=== PATIENT | female | born 1990 | race Caucasian/White ===

== ENCOUNTER 2022-06-15 01:43 | Inpatient (IN) | payer BC ==
[2022-06-15] MEDS ORDERED: hydrALAZINE 20 MG/ML VIAL SLOW IVP PRN ×2 (01:57→03:16)
[2022-06-15] MEDS ORDERED: Ondansetron PF 4 MG/2 ML Vial IVP PRN ×3 (01:57→03:51)
[2022-06-15] MEDS ORDERED: Lidocaine 1% (PF) 30 ML VIAL SC PRN ×2 (01:57→01:59)
[2022-06-15] MEDS ORDERED: Promethazine HCl 25 MG/ML VIAL IM PRN ×3 (01:57→03:51)
[2022-06-15] MEDS ORDERED: Methylergonovine 0.2 MG/ML VIAL IM PRN (01:59)
[2022-06-15] MEDS ORDERED: Diphenoxylate HCl/Atropine Tablet PO PRN (01:59)
[2022-06-15] MEDS ORDERED: Carboprost 250 MCG/ML AMP IM PRN (01:59)
[2022-06-15] MEDS ORDERED: Misoprostol 200 MCG TAB PR PRN (01:59)
[2022-06-15] MEDS ORDERED: NS w/ Oxytocin 30 units 500 ML IV SCH ×3 (02:00)
[2022-06-15] MEDS ORDERED: Penicillin G 2.5 MILL.units 2.5 MILL.UNITS in Premix Bag 1 BAG IVPB SCH (02:00)
[2022-06-15] MEDS ORDERED: Penicillin G Potassium 5 MILL.UNITS in Sodium Chloride 0.9% 100 ML IVPB SCH (02:00)
[2022-06-15] MEDS ORDERED: Azithromycin 500 MG VIAL ONE (02:08)
[2022-06-15] MEDS ORDERED: CEFAZOLIN 2 GM VIAL ONE (02:08)
[2022-06-15] MEDS ORDERED: Ondansetron PF 4 MG/2 ML Vial ONE (02:11)
[2022-06-15] MEDS ORDERED: Dexamethasone 4 mg/ml Vial ONE (02:11)
[2022-06-15] MEDS ORDERED: Lidocaine 1% PF 5 ML VIAL ONE (02:11)
[2022-06-15] MEDS ORDERED: PROPOFOL 20 ML ONE (02:11)
[2022-06-15] MEDS ORDERED: Succinylcholine 200 MG/10 ml SYRINGE FS ONE (02:11)
[2022-06-15] MEDS ORDERED: PHENYLEPHRINE-NS 100 MCG/ML 10 ML SYRINGE ONE (02:11)
[2022-06-15] MEDS ORDERED: Fentanyl 100 MCG/2 ML VIAL ONE ×3 (02:11→03:07)
[2022-06-15] MEDS ORDERED: CEFAZOLIN 2 GM in Sodium Chloride 0.9% 100 ML IVPB SCH (02:15)
[2022-06-15] MEDS ORDERED: Azithromycin 500 MG in Sodium Chloride 0.9% 250 ML 250 ML IVPB ONE (02:15)
[2022-06-15] MEDS ORDERED: Oxytocin 10 UNITS/ML VIAL ONE ×3 (02:21→02:43)
[2022-06-15] MEDS ORDERED: Methylergonovine 0.2 MG/ML VIAL ONE ×2 (02:24→02:43)
[2022-06-15] MEDS ORDERED: Carboprost 250 MCG/ML AMP ONE (02:24)
[2022-06-15] MEDS ORDERED: Tranexamic Acid 1,000 MG/10 ML VIAL ONE (02:25)
[2022-06-15] MEDS ORDERED: Misoprostol 200 MCG TAB ONE ×2 (02:27→02:33)
[2022-06-15 02:41] LABS: Hemoglobin 14.7 g/dL (12.0-15.5); Mean Corpuscular HGB CONC 35.3 g/dL (32.0-36.0); Mean Corpuscular Volume 85.1 fl (81.6-98.3); Platelet Count 294 10x3/uL (150-450); RBC Distribution Width 12.2 % (11.5-14.5)
[2022-06-15] MEDS ORDERED: Acetaminophen 325 MG TAB PO PRN (03:16)
[2022-06-15] MEDS ORDERED: Lanolin Ointment 7 GM TUBE TOP PRN (03:16)
[2022-06-15] MEDS ORDERED: Simethicone Chewable 80 MG TAB PO PRN (03:16)
[2022-06-15] MEDS ORDERED: Boostrix 0.5 ML (Tdap) VIAL (>/=7 yrs of age) IM ONE (03:16)
[2022-06-15] MEDS ORDERED: HYDROcodone/Acetaminophen 5/325 mg Tablet PO PRN (03:16)
[2022-06-15] MEDS ORDERED: Ketorolac Tromethamine 30 MG/ML VIAL IVP PRN (03:51)
[2022-06-15] MEDS ORDERED: Moisturizing Cream (Eucerin) 113 GM JAR TOP PRN (03:51)
[2022-06-15] MEDS ORDERED: Meperidine HCl/PF 25 MG/ML VIAL SLOW IVP PRN (03:51)
[2022-06-15] MEDS ORDERED: Naloxone HCl 0.4 mg/ml Vial IVP PRN ×2 (03:51)
[2022-06-15] MEDS ORDERED: Fentanyl 100 MCG/2 ML VIAL SLOW IVP PRN (03:51)
[2022-06-15] MEDS ORDERED: diphenhydrAMINE 25 MG CAP PO PRN (03:51)
[2022-06-15] MEDS ORDERED: diphenhydrAMINE 50 MG/ML VIAL IM PRN (03:51)
[2022-06-15] MEDS ORDERED: diphenhydrAMINE 50 MG/ML VIAL IVP PRN ×2 (03:51)
[2022-06-15] MEDS ORDERED: Promethazine HCl 25 MG SUPP PR PRN (03:51)
[2022-06-15] MEDS ORDERED: Naloxone HCl 0.4 mg/ml Vial IV PRN ×2 (03:51)
[2022-06-15] MEDS ORDERED: FENTANYL 500 MCG/10 ML VIAL 2,000 MCG in Sodium Chloride 0.9% 60 ML IV PRN (03:51)
[2022-06-15] MEDS ORDERED: Ondansetron HCl/PF 4 MG/2 ML Vial IVP PRN (03:51)
[2022-06-15] MEDS ORDERED: Zolpidem Tartrate 5 MG TAB PO PRN (03:51)
[2022-06-15 03:53] VITALS: BMI 31.1
[2022-06-15] MEDS ORDERED: Communication Order-Pharmacy FS SCH ×2 (04:00)
[2022-06-15] MEDS ORDERED: Ketorolac Tromethamine 30 MG/ML VIAL IVP SCH (04:00)
[2022-06-15 04:01] LABS: pH (Cord, venous) 7.091 (7.250-7.350)
[2022-06-15] MEDS: FENTANYL 500 MCG/10 ML VIAL 1,000 MCG in Sodium Chloride 0.9% 30 ML IV PRN ×2 (04:44→21:31)
[2022-06-15 05:13] LABS: Syphilis Antibody Nonreactive (Nonreactive); Syphilis Antibody Index 0.13 S/CO (<1.00 Non-Reactive)
[2022-06-15 05:14] LABS: HBSAg Index 0.12 S/CO (0-0.99); Hep B Surf Ag Non-Reactive S/CO (NonReactive)
[2022-06-15 06:13] LABS: HIV (1/2) Antibody/Antigen Non-Reactive (NonReactive); HIV 1/2 INDEX 0.16 S/CO (<1.00)
[2022-06-15] MEDS: Methylergonovine 0.2 MG/ML VIAL IM SCH ×3 (08:37→19:06)
[2022-06-15] MEDS: Lactated Ringer's 1,000 ML IV SCH ×2 (08:37→19:06)
[2022-06-15] MEDS: Docusate 100 MG CAP PO SCH ×2 (11:38→19:57)
[2022-06-15] MEDS: Prenatal Vitamin 1 TAB PO SCH (11:39)
[2022-06-15 12:14] LABS: Hemoglobin 12.5 g/dL (12.0-15.5)
[2022-06-16] MEDS: Lactated Ringer's 1,000 ML IV SCH ×3 (03:09→21:32)
[2022-06-16] MEDS: Methylergonovine 0.2 MG/ML VIAL IM SCH (03:10)
[2022-06-16 03:29] LABS: Hemoglobin 11.7 g/dL (12.0-15.5); Mean Corpuscular HGB CONC 34.8 g/dL (32.0-36.0); Mean Corpuscular Hemoglobin 30.2 pg (27.0-33.0); Mean Corpuscular Volume 86.6 fl (81.6-98.3); Mean Platelet Volume 10.4 fl (7.4-10.4); Platelet Count 244 10x3/uL (150-450); RBC Distribution Width 12.3 % (11.5-14.5); Red Blood Cell (RBC) Count 3.88 10x6/uL (3.90-5.03); White Blood Cell (WBC) Count 17.7 10x3/uL (3.5-10.5)
[2022-06-16] MEDS: Ibuprofen 800 MG TAB PO SCH ×3 (06:58→21:54)
[2022-06-16] MEDS: Docusate 100 MG CAP PO SCH ×2 (08:23→21:54)
[2022-06-16] MEDS: Prenatal Vitamin 1 TAB PO SCH (08:23)
[2022-06-16] MEDS ORDERED: HYDROcodone/Acetaminophen 5/325 mg Tablet PO PRN (12:00)
[2022-06-17] MEDS: Lactated Ringer's 1,000 ML IV SCH (03:20)
[2022-06-17] MEDS: Ibuprofen 800 MG TAB PO SCH (05:45)
[2022-06-17 08:13] VITALS: BP 101/50; TEMP 98.1
[2022-06-17] MEDS: Docusate 100 MG CAP PO SCH (08:54)
[2022-06-17] MEDS: Prenatal Vitamin 1 TAB PO SCH (08:54)
== END 2022-06-17 11:33 | disposition home or self-care (01) | DRG 786 ==
LOC: CSHLD 01:43 → CSHPED 06:23
PROVIDERS: ADMIT Obstetrics & Gynecology; ATTEND Obstetrics & Gynecology
PROC: 10D00Z1 Extraction of Products of Conception, Low, Open Approach (ICD-10-PCS; principal; 2022-06-15)
DX: O42.02 Full-term premature rupture of membranes, onset of labor within 24 hours of rupture (principal); O41.1230 Chorioamnionitis, third trimester, not applicable or unspecified; O72.1 Other immediate postpartum hemorrhage; O62.1 Secondary uterine inertia; O76 Abnormality in fetal heart rate and rhythm complicating labor and delivery; O99.824 Streptococcus B carrier state complicating childbirth; Z3A.40 40 weeks gestation of pregnancy; Z37.0 Single live birth; O77.0 Labor and delivery complicated by meconium in amniotic fluid
CPT/HCPCS: 36415; 51702; 72170; 82805; 85027; 86780; 86850; 86900; 86901; 87340; 87389; 88307; J1100; J2210; J2405; J2590; J2704; J3010; J3490